=== PATIENT | female | born 1980 | race Caucasian/White ===

== ENCOUNTER 2016-12-07 16:22 | Emergency (ER) | payer BC ==
[2016-12-07 17:55] LABS: HEMOGLOBIN 12.9 gm/dl (12.3-15.3); RED BLOOD COUNT 4.22 M/UL (4.00-5.10); WHITE BLOOD COUNT 13.8 K/UL (4.5-11.0)
[2016-12-07 18:36] LABS: BUN/CREATININE RATIO 16 (0-10)
== END 2016-12-07 20:20 | disposition home or self-care (01) ==
LOC: ER1 16:22
PROVIDERS: Specialist/Technologist Athletic Trainer
DX: M25.511 Pain in right shoulder (principal); R07.1 Chest pain on breathing; F17.210 Nicotine dependence, cigarettes, uncomplicated
CPT/HCPCS: 36415; 71020; 80053; 82550; 82553; 83874; 84484; 85025; 85379; 99283